=== PATIENT | male | born 1945 | race Caucasian/White ===

== ENCOUNTER 2019-04-09 15:27 | Emergency (ER) | payer OTHER ==
--- NOTE | 2019-04-09 15:34 | PDOC ---
History of Present Illness - General Chief Complaint: Injury Stated Complaint: RT FOOT INJURY Time Seen by Provider: 04/09/19 15:32 History Source: Patient - History of Present Illness Initial Comments: 04/09/19 15:42 pt presents to the ED complaining of pain and swelling to the R foot after a fall on Tuesday. Patient has been able to ambulate, but is noticing that the pain and ecchymosis are worsening and became concerned. Denies other injuries. Past History - Past Medical History Allergies/Adverse Reactions: Allergies Allergy/AdvReac Type Severity Reaction Status Date / Time Penicillins Allergy Severe Difficulty Verified 09/03/16 20:56 Breathing Home Medications: Ambulatory Orders Apixaban [Eliquis] 5 mg PO BID 09/03/16 Digoxin [Lanoxin -] 0.125 mg PO DAILY 09/03/16 Finasteride 5 mg PO DAILY 09/03/16 Losartan Potassium 50 mg PO DAILY 09/03/16 Metoprolol Succinate [Toprol Xl] 200 mg PO DAILY 09/03/16 Cardiac Disorders: Yes (A-FIB) CVA: Yes (FULLU RECOVERED) HTN: Yes - Surgical History Abdominal Surgery: Yes (RT INGUINAL) - Psycho Social/Smoking Cessation Hx Smoking History: Never smoked Have you smoked in the past 12 months: No Hx Alcohol Use: Yes (OCASSIONAL) Drug/Substance Use Hx: No Substance Use Type: None Hx Substance Use Treatment: No Review of Systems - Review of Systems Able to Perform ROS?: Yes Is the patient limited [place] proficient: No Constitutional: No: Symptoms Reported, See HPI, Chills, Diaphoresis, Fever, Loss of Appetite, Malaise, Night Sweats, Weakness, Weight Stable, Unintentional Wgt. Loss, Unexplained wgt Loss, Other Musculoskeletal: Yes: Joint Pain, Joint Swelling. No: Symptoms Reported, See HPI, Back Pain, Gout, Muscle Pain, Muscle Weakness, Neck Pain, Joint Stiffness, Other *Physical Exam - Physical Exam Comments: 04/09/19 16:01 gen: alert, NAD R foot and ankle: neurovascularly intact. + diffuse swelling. + ecchymosis on the plantar surface of the foot and on the lateral aspect of the foot. + diffuse tenderness, worst on the dorsum of the foot. No swelling or tenderness of the ankle. No tenderness at the base of the 5th metatarsal, the medial or lateral malleoli. 04/09/19 17:51 Medical Decision Making - Medical Decision Making 04/09/19 16:03 Pt presents to the ED complaining of pain and swelling to the foot after fall. Ambulatory on the affected foot. Will check xrays of the foot and ankle to evaluate for fracture Discharge - Discharge Information Problems reviewed: Yes Clinical Impression/Diagnosis: Contusion, foot Qualifiers: Encounter type: initial encounter Laterality: right Qualified Code(s): S90.31XA - Contusion of right foot, initial encounter Condition: Good Disposition: HOME - Admission No - Follow up/Referral - Patient Discharge Instructions Patient Printed Discharge Instructions: DI for Foot Sprain Additional Instructions: you came to the ED complaining of pain in your foot after falling. We did xrays of the foot and ankle and do not see a fracture. You should return to the ED for worsening pain and swelling, difficulty walking, other new or worsening symptoms. - Post Discharge Activity
[2019-04-09 16:16] VITALS: BP 124/83; PULSE 83; TEMP 98.1; BMI 25.7
== END 2019-04-09 18:17 | disposition home or self-care (01) ==
LOC: FER 15:27
DX: S90.31XA Contusion of right foot, initial encounter (principal); I10 Essential (primary) hypertension; I48.91 Unspecified atrial fibrillation; Z86.73 Personal history of transient ischemic attack (TIA), and cerebral infarction without residual deficits; K92.9 Disease of digestive system, unspecified; Z79.01 Long term (current) use of anticoagulants; Z88.0 Allergy status to penicillin; X58.XXXA Exposure to other specified factors, initial encounter; Y93.89 Activity, other specified; Y92.89 Other specified places as the place of occurrence of the external cause
CPT/HCPCS: 73610-TC-RT-FY; 73630-TC-RT-FY; 99281-25

== ENCOUNTER 2022-12-17 12:00 | Observation (INO) | payer OTHER ==
[2022-12-17 12:14] VITALS: BMI 27.4
[2022-12-17 12:58] LABS: MCH 30.3 pg (25.7-33.7); MCHC 33.9 g/dl (32.0-35.9); MEAN CELL VOLUME 89.5 fl (80-96); MEAN PLT VOLUME 9.8 fl (7.5-11.1); PLATELET COUNT 224.1 10^3/uL (134-434); RBC 5.59 10^6/uL (4.00-5.60); RDW 13.9 % (11.9-15.9); WHITE BLOOD COUNT 8.8 10^3/uL (4.0-10.8)
[2022-12-17 13:01] LABS: INR 1.31 (0.83-1.09); PROTHROMBIN TIME (PATIENT) 15.2 SEC (9.7-13.0)
[2022-12-17 13:04] LABS: ACTIVATED PTT 38.6 SECONDS (25.2-36.5)
[2022-12-17 13:13] LABS: ALBUMIN 4.7 g/dl (3.4-5.0); BILIRUBIN,TOTAL 0.7 mg/dl (0.2-1); BLOOD UREA NITROGEN 15.5 mg/dl (7-18); CALCIUM 10.3 mg/dl (8.5-10.1); CREATININE 1.1 mg/dl (0.6-1.3); POTASSIUM 4.3 mmol/L (3.5-5.1); SGOT/AST 13.9 U/L (15-37); SGPT/ALT 18.4 U/L (7-52); TOT PROT 7.5 g/dl (6.4-8.2)
[2022-12-17 17:29] VITALS: TEMP 97.8
[2022-12-17 18:13] VITALS: BP 154/95; PULSE 82; RESP 20
[2022-12-17] MEDS ORDERED: APIXABAN 5 MG TABLET PO SCH (22:00)
[2022-12-17] MEDS ORDERED: ATORVASTATIN CA 80 MG TABLET (FP) PO SCH (22:00)
[2022-12-18] MEDS ORDERED: FINASTERIDE 5 MG TABLET (FP) PO SCH (10:00)
[2022-12-18] MEDS ORDERED: VALSARTAN 160 MG TABLET PO SCH (10:00)
[2022-12-18] MEDS ORDERED: amLODIPine BESYLATE 5 MG TABLET (FP) PO SCH (10:00)
== END 2022-12-17 18:53 | disposition left against medical advice (07) ==
LOC: FER 12:00 → JER 12:00 → JERBED 15:06
PROVIDERS: ADMIT Internal Medicine; ATTEND Internal Medicine
DX: M62.81 Muscle weakness (generalized) (principal); G45.9 Transient cerebral ischemic attack, unspecified; R29.898 Other symptoms and signs involving the musculoskeletal system; I48.91 Unspecified atrial fibrillation; I10 Essential (primary) hypertension; Z88.0 Allergy status to penicillin
CPT/HCPCS: 36415; 70450-TC; 70496-TC; 70498-TC; 80053; 84484; 85025; 85610; 85730; 86850; 86900; 86901; 87635; 93005; 93010; 99285-25; G0378; Q9967